=== PATIENT | female | born 1995 | race Caucasian/White ===

== ENCOUNTER 2021-04-24 21:01 | Emergency (ER) | payer BC ==
[~2021-04-24] VITALS: Ht 154.9 cm; Wt 83.9 kg
== END 2021-04-25 04:47 | disposition left against medical advice (07) ==
LOC: ER 21:01
DX: U07.1 COVID-19 (principal); L50.9 Urticaria, unspecified; R50.9 Fever, unspecified; R05.9 Cough, unspecified
CPT/HCPCS: 71260; 36600; 82805; Q9965